=== PATIENT | female | born 1980 | race Caucasian/White ===

== ENCOUNTER 2023-04-07 13:09 | Emergency (ER) | payer OTHER, SELFPAY ==
[2023-04-07] VITALS (14 sets, daily range): BP systolic 124–194; BP diastolic 69–115; PULSE 45–121; RESP 17–31; TEMP 36.8–36.9; O2SAT 88–99; BMI 44.3
--- NOTE | 2023-04-07 13:14 | XR_ITS ---
FINAL REPORT CLINICAL HISTORY: r/o dislocation, fall today FINDINGS: LEFT SHOULDER SERIES Three views of the left shoulder were obtained. There is anterior dislocation of the humerus at the glenohumeral joint. The joint spaces are preserved. There is no soft tissue abnormality. IMPRESSION: Anterior dislocation of the humerus at the glenohumeral joint. Reviewed, Interpreted and Dictated by Isaias Painter III, MD Transcribed by Henry Snow Authenticated and [facility]
--- NOTE | 2023-04-07 13:34 | HMH.EDGENADL ---
Discharge Plan Disposition Patient Disposition: Home, Self-Care Condition: Good Chief Complaint: Extremity Injury, Upper Prescriptions Prescriptions: No Action atorvastatin 40 mg Tablet 40 mg PO HS tizanidine 4 mg Tablet 4 mg PO HS PRN (Reason: Muscle Pain) carvedilol 3.125 mg Tablet 3.125 mg PO DAILY amitriptyline 25 mg Tablet 25 - 50 mg PO HS PRN (Reason: Nerve pain) omeprazole 20 mg Capsule,Delayed Release(Dr/Ec) 20 mg PO DAILY hydroxyzine HCl 25 mg Tablet 25 mg PO BID PRN (Reason: Anxiety) colestipol 1 gram Tablet 1 g PO BID prazosin 2 mg Capsule 2 mg PO HS metformin 500 mg Tablet Extended Release 24hr 1,500 mg PO HS insulin degludec [Tresiba FlexTouch U-200] 200 unit/mL (3 mL) Insulin Pen 42 unit SQ DAILY Farxiga 10 mg Tablet 10 mg PO DAILY Vraylar 4.5 mg Capsule 4.5 mg PO DAILY Referrals Follow up/Referrals: Provider,Referral, MD [Primary Care Provider] - See instructions Clinical Impressions Clinical Impression: Anterior shoulder dislocation Qualifiers: Encounter type: initial encounter Laterality: left Qualified Code(s): S43.015A - Anterior dislocation of left humerus, initial encounter Fall Qualifiers: Encounter type: initial encounter Qualified Code(s): W19.XXXA - Unspecified fall, initial encounter Instructions Patient Instructions: DI for Moderate Sedation Discharge ED Provider: John Sinha General Adult HPI General Chief complaint: Extremity Injury, Upper Stated complaint: r/o dislocation of shoulder Time Seen by Provider: 04/07/23 13:14 Mode of Arrival: EMS Source of Information: Patient and EMS Limitations: No Limitations Description of Symptoms (Recalled from ER Triage Doc. by RN): 42 F presents via EMS from home after sustaining a fall. She reports walking through her home, and in a spot on their floor there is a dip which she stepped into and caused her to trip. She is unsure if she grabbed something on the way down, but is sure she landed onto her left shoulder. EMS reports obvious deformity noted representing a dislocation. Pulses are palpable and string. History of Present Illness HPI narrative: 42yo F presents to the ER secondary to left shoulder pain after a fall. Patient suspects that she has dislocated her shoulder. No history of shoulder dislocation. Patient is right-hand dominant. No head strike or LOC Related Data Home Medications Medication Instructions Recorded Confirmed amitriptyline 25 mg tablet 25 - 50 mg PO HS PRN Nerve pain 04/07/23 04/07/23 atorvastatin 40 mg tablet 40 mg PO HS High Cholesterol 04/07/23 04/07/23 cariprazine 4.5 mg capsule 4.5 mg PO DAILY Psychiatric 04/07/23 04/07/23 (Vraylar) carvedilol 3.125 mg tablet 3.125 mg PO DAILY High Blood 04/07/23 04/07/23 Pressure colestipol 1 gram tablet 1 g PO BID High Cholesterol 04/07/23 04/07/23 dapagliflozin propanediol 10 mg 10 mg PO DAILY Diabetes 04/07/23 04/07/23 tablet (Farxiga) hydroxyzine HCl 25 mg tablet 25 mg PO BID PRN Anxiety 04/07/23 04/07/23 insulin degludec 200 unit/mL (3 42 unit SQ DAILY Diabetes 04/07/23 04/07/23 mL) subcutaneous pen (Tresiba FlexTouch U-200 insulin) metformin 500 mg tablet,extended 1,500 mg PO HS Diabetes 04/07/23 04/07/23 release 24hr omeprazole 20 mg capsule,delayed 20 mg PO DAILY Acid Reflux 04/07/23 04/07/23 release prazosin 2 mg capsule 2 mg PO HS High Blood Pressure 04/07/23 04/07/23 tizanidine 4 mg tablet 4 mg PO HS PRN Muscle Pain 04/07/23 04/07/23 Allergies Allergy/AdvReac Type Severity Reaction Status Date / Time dulaglutide [From Trulicity] AdvReac Intermediate Nausea Verified 04/07/23 13:15 semaglutide [From Ozempic] AdvReac Intermediate Nausea Verified 04/07/23 13:15 [facility] Disclaimer: The information contained in this section may have been updated after the patient was seen, as this information can be updated by other users. Medical History Anx
--- NOTE | 2023-04-07 14:19 | XR_ITS ---
PROCEDURE INFORMATION: Exam: XR Left Shoulder Exam date and time: 04/07/2023 2:17 PM Age: 42 years old Clinical indication: Injury or trauma and condition or disease; Fall; Other: Dislocation; Severity not specified; Shoulder; Left; Additional info: Post shoulder reduction TECHNIQUE: Imaging protocol: Radiologic exam of the left shoulder. Views: 2 or more views. COMPARISON: CR XR SHOULDER LT MIN 2V 04/07/2023 1:15 PM FINDINGS: Limitations: Study is limited to single AP view of the shoulder with arm held in internal rotation. Bones/joints: There appears to be successful reduction of left shoulder dislocation with restored anatomic alignment. Soft tissues: Unremarkable. IMPRESSION: As above.
--- NOTE | 2023-04-07 14:42 | PC.NURSE ---
Procedural Sedation: Started at 1411 with medication Traction/Manipulation at 1413 Shoulder back in at 1416, waiting for X-ray 1420, X-ray present for post-reduction. Verified back in joint per Attending, Dr. Sinha Patient RASS back to 0 at 1435
== END 2023-04-07 15:13 | disposition home or self-care (01) ==
PROVIDERS: Emergency Provider Family Medicine
DX: S43.015A Anterior dislocation of left humerus, initial encounter (principal); F41.9 Anxiety disorder, unspecified; E11.9 Type 2 diabetes mellitus without complications; K21.9 Gastro-esophageal reflux disease without esophagitis; E78.5 Hyperlipidemia, unspecified; I10 Essential (primary) hypertension; F32.9 Major depressive disorder, single episode, unspecified; F17.200 Nicotine dependence, unspecified, uncomplicated; W01.0XXA Fall on same level from slipping, tripping and stumbling without subsequent striking against object, initial encounter
CPT/HCPCS: 23650; 73030; 96374; 96375; 99284